=== PATIENT | male | born 1960 | race Caucasian/White ===

== ENCOUNTER 2017-09-30 09:25 | Emergency (ER) | payer OTHER ==
--- NOTE | 2017-09-30 16:45 | Emergency Department Report ---
Abscess Boil HPI - HPI Chief Complaint: Skin/Abscess/Foreign Body Stated Complaint: INSECT BITE Time Seen by Provider: 09/30/17 16:11 Duration: >1 Week Location: Back History: Yes Pain (painful to touch), Yes Purulent Drainage, Yes Insect Bite ( spider bite greater than 1 week ago), No Fever, No Numbness, No Previous History HPI: Patient reports that he has had a bite greater than 1 week ago to his left mid back area. He said he was able to squeeze some pus but it hurts and it still red and swollen. Immunizations up-to-date including tetanus. Denies any fever or chills. Pain to touch is 7 out of 10. He said he took some over-the- counter medication but infection is not going away. Denies any nausea or vomiting. Denies any wrist or distress. Home Medications: Previous Rx's Medication Instructions Recorded Last Taken Type HYDROcodone/APAP 5-325 [Sand[place] 1 each PO Q6HR PRN #12 tablet 06/14/15 Unknown Rx 5-325 mg TAB] Doxycycline [Vibramycin CAP] 100 mg PO Q12HR 10 Days #20 capsule 09/30/17 Unknown Rx Ibuprofen [Motrin 800 MG tab] 800 mg PO Q8HR PRN #12 tablet 09/30/17 Unknown Rx Allergies/Adverse Reactions: Allergies Allergy/AdvReac Type Severity Reaction Status Date / Time No Known Allergies Allergy Verified 06/14/15 06:30 ED Review of Systems ROS: Stated complaint: INSECT BITE Other details as noted in HPI Comment: All other systems reviewed and negative Constitutional: no symptoms reported ENT: denies: throat pain Respiratory: no symptoms reported Cardiovascular: denies: chest pain, palpitations, edema, syncope Gastrointestinal: denies: nausea, vomiting Musculoskeletal: denies: back pain, joint swelling, arthralgia, myalgia Skin: rash, other (spider bite with infection to left back) Neurological: denies: headache, abnormal gait ED Past Medical Hx - Past Medical History Previous Medical History?: No Hx Hypertension: No Hx CVA: No Hx Heart Attack/AMI: No Hx Congestive Heart Failure: No Hx Diabetes: No Hx Deep Vein Thrombosis: No Hx Pulmonary Embolism: No Hx GERD: No Hx Liver Disease: No Hx Renal Disease: No Hx Sickle Cell Disease: No Hx Arthritis: No Hx Headaches / Migraines: No Hx Seizures: No Hx Kidney Stones: No Hx Psychiatric Treatment: No Hx Asthma: No Hx COPD: No Hx Tuberculosis: No Hx Dementia: No Hx HIV: No - Surgical History Past Surgical History?: Yes Hx Coronary Stent: No Hx Open Heart Surgery: No Hx Pacemaker: No Hx Internal Defibrillator: No Hx Cholecystectomy: No Hx Appendectomy: No Hx Breast Surgery: No Additional Surgical History: Hernia - Family History Family history: hypertension - Social History Smoking Status: Current Every Day Smoker Substance Use Type: Alcohol - Medications Home Medications: Home Medications Medication Instructions Recorded Confirmed Last Taken Type HYDROcodone/APAP 5-325 [Sandborn 1 each PO Q6HR PRN #12 tablet 06/14/15 Unknown Rx 5-325 mg TAB] Doxycycline [Vibramycin CAP] 100 mg PO Q12HR 10 Days #20 capsule 09/30/17 Unknown Rx Ibuprofen [Motrin 800 MG tab] 800 mg PO Q8HR PRN #12 tablet 09/30/17 Unknown Rx ED Abscess Boil Physical Exam - Exam General: Vital signs noted. No distress. Alert and acting appropriately. This is a 57-year-old malnourished. No acute distress. Front/Back of Body, Lg (Color): 1 - Patient with 0.25 cm indurated nonfluctuant area to posterior thorax. Palpate with small opening to the Center. Unable to changes in nonfluctuant. Exam: Yes Tenderness (left posterior thorax), Yes Surrounding Cellulites/ Erythema, Yes Normal Neurologic Exam, Yes Normal Circulation, No Fluctuance, No Lymphangitis, No Crepitation, No Heart Murmur Exam: Neck: Supple, nontender to palpate. No C-spine tenderness. No adenopathy. Mouth: Moist, no pharyngeal erythema or exudate. Tongue is normal , uvula is midline and oral airways patent. Lungs: Clear to Auscultate bilaterally, no rhonchi, wheezes or rales. Extremity: No clubbing, cyanosis or edema. Positive pulses all extremities. No neurovascular compromise. Cardiovascular: S1S2, bradycardic at 57 which patient says is normal for him. Negative murmur I & D Note - I & D Note I & D Note: Patient with small erythema area mildly indurated with nonfluctuant to left posterior thorax. Unable to drain due to no fluctuance. Immunizations up-to-date including tetanus. ED Course Vital Signs 09/30/17 10:54 Temperature 97.9 F Pulse Rate 57 L Respiratory 18 Rate Blood Pressure 133/87 O2 Sat by Pulse 100 Oximetry - Reevaluation(s) Reevaluation #1: 09/30/17 17:29 I discussed the patient's treatment planned and he had stable ED stay Critical care attestation.: If time is entered above; I have spent that time in minutes in the direct care of this critically ill patient, excluding procedure time. ED Medical Decision Making - Medical Decision Making ED course: Patient with spider bites, abscess and cellulitis to left posterior thorax. Unable to incision and drained due to no fluctuance. Patient said it was draining some pus a few days ago. I discussed the patient that his abscess with cellulitis and will be treated with antibiotic. I encouraged him to apply warm compresses 3-4 times a day to facilitate drainage. Patient discharged home in stable condition with prescription for doxycycline and Motrin and to follow-up with his primary care physician in 2-3 days and if he does not have one follow-up at [facility]. ED Disposition Clinical Impression: Abscess or cellulitis of back Spider bite Qualifiers: Encounter type: initial encounter Injury intent: accidental or unintentional Qualified Code(s): T63.301A - Toxic effect of unspecified spider venom, accidental (unintentional), initial encounter Disposition: - TO HOME OR SELFCARE Is pt being admited?: No Does the pt Need Aspirin: No Condition: Stable Instructions: Insect Bite or Sting (ED), Abscess (ED), Cellulitis (ED) Additional Instructions: Take antibiotic as prescribed Follow-up with your primary care physician in 2 days and if you do not have one please follow-up with his [facility] Keep affected area clean and dry. Followed discharge instruction on acute wound care . Please return to emergency room if you develop increasing redness, streaking, fever, Prescriptions: Doxycycline [Vibramycin CAP] 100 mg PO Q12HR 10 Days #20 capsule Ibuprofen [Motrin 800 MG tab] 800 mg PO Q8HR PRN #12 tablet PRN Reason: Pain Referrals: PRIMARY CARE, [Primary Care Provider] - 2-3 Days Forms: Work/School Release Form(ED)
[2017-09-30 17:54] VITALS: BP 115/93
== END 2017-09-30 17:44 | disposition home or self-care (01) ==
LOC: ED 09:25
DX: L02.212 Cutaneous abscess of back [any part, except buttock and flank] (principal); S21.252A Open bite of left back wall of thorax without penetration into thoracic cavity, initial encounter; F17.200 Nicotine dependence, unspecified, uncomplicated; W57.XXXA Bitten or stung by nonvenomous insect and other nonvenomous arthropods, initial encounter; Y93.89 Activity, other specified; Y92.89 Other specified places as the place of occurrence of the external cause; Y99.8 Other external cause status
CPT/HCPCS: 99282